=== PATIENT | male | born 1955 | race Caucasian/White ===

== ENCOUNTER 2017-01-14 21:03 | Emergency (ER) | payer SELFPAY ==
[~2017-01-14] VITALS: Ht 172.7 cm; Wt 45.6 kg
[~2017-01-14 21:03] MED LIST: VITA1TAB9 PO
[2017-01-14 21:05] VITALS: BP 124/90
[2017-01-14] MEDS ORDERED: POTA20TA14 PO (21:39)
[2017-01-14 22:45] LABS: BLOOD UREA NITROGEN 11 mg/dL (7-18)
== END 2017-01-15 00:04 | disposition home or self-care (01) ==
LOC: ED 23:54
DX: S09.93XA Unspecified injury of face, initial encounter (principal); X58.XXXA Exposure to other specified factors, initial encounter; Y93.89 Activity, other specified; Y92.488 Other paved roadways as the place of occurrence of the external cause; Y99.8 Other external cause status; R42 Dizziness and giddiness
CPT/HCPCS: 36415; 70450; 80048; 82040; 85025; 93005; 99285